=== PATIENT | male | born 1940 | race Two or more races ===

== ENCOUNTER → 2025-01-11 | Outpatient (CLI) | payer MEDICARE, MEDICAID, SELFPAY ==
--- NOTE | 2025-01-11 15:00 | XR_ITS ---
Examination: CT chest with intravenous contrast 2-D sagittal and coronal reconstructions Exam date and time: January 11, 2025, 1611 hours INDICATIONS: Chronic coughing, pulmonary nodules on outside chest examination this month CTDI:vol (mGy) 13.6 DLP: (mGycm) 516 Technique: Multiple axial sections of the thorax have been obtained. Sections have been obtained, 3 mm slice thickness. Mediastinal and lung density settings have been obtained. Intravenous contrast administered, 60 cc Isovue 370. 2-D sagittal, coronal images obtained. Low dose protocols were performed. One or more of the following dose reduction techniques were used; automated exposure control, adjustment of the mA and/or KV according to patient size, use of iterative reconstruction technique. Findings: Enlarged left thyroid lobe with multiple thyroid nodules, the largest 24 mm The left thyroid lobe is displacing the trachea to the right Mild aneurysmal dilatation ascending thoracic aorta, AP dimension 4.1 cm Pulmonary artery segments are not enlarged No pulmonary artery filling defects Mild calcification left circumflex coronary artery No mediastinal lymphadenopathy 4 mm pulmonary nodule right lower lobe image 219 Calcified granuloma 5 mm in the right upper lobe No pneumonia or pulmonary edema No visualized liver or splenic lesions No gallstones No pancreatic or adrenal mass Moderate thoracic spondylosis IMPRESSION: Left thyromegaly with multiple thyroid nodules, recommend dedicated thyroid sonography follow-up 4 mm noncalcified pulmonary nodule right lower lobe, with the studies baseline recommend 6-month follow-up CT chest without contrast
== END | disposition home or self-care (01) ==
PROVIDERS: PCP Family Medicine; Referring Provider Family Medicine; Visit Provider Family Medicine
DX: E01.0 Iodine-deficiency related diffuse (endemic) goiter (principal); R91.1 Solitary pulmonary nodule; R05.3 Chronic cough
CPT/HCPCS: 71260; A4649; Q9967